=== PATIENT | female | born 1945 | race Caucasian/White ===

== ENCOUNTER 2023-01-20 21:16 | Emergency (ER) | payer OTHER ==
[2023-01-20] MEDS ORDERED: MORPHINE 4 MG/ML SYR ONE (22:04)
[2023-01-20] MEDS ORDERED: KETOROLAC 30 MG/ML INJ ONE (22:05)
[2023-01-20] MEDS ORDERED: NA CHLORIDE 0.9% 1,000 ML ONE (22:05)
[2023-01-20] MEDS ORDERED: ETOMIDATE 20 MG/10 ML VIAL IV ONE (22:05)
[2023-01-20] MEDS ORDERED: ONDANSETRON 4 MG/2 ML VIAL ONE (22:05)
--- NOTE | 2023-01-20 22:28 | RAD REPORT ---
EXAM DESCRIPTION: CT - CTFB CLINICAL HISTORY: nasal injury Trauma, nasal injury. COMPARISON: <Comparisons> TECHNIQUE: Axial 2 mm thick images of the face were obtained with sagittal and coronal reconstructio n images. All CT scans are performed using dose optimization technique as appropriate and may include automated exposure control or mA/KV adjustment according to patient size. FINDINGS: Mildly displaced right nasal bone fractures noted.The mandible is intact. The globes and orbital contents are grossly unremarkable.The paranasal sinuses and mastoids are clear . IMPRESSION: Mildly displaced nasal bone fracture.
[2023-01-21] MEDS ORDERED: ONDANSETRON 4 MG/2 ML VIAL ONE (00:30)
[2023-01-21] MEDS ORDERED: TETANUS & DIPHTHERIA TOX,ADULT 0.5 ML VIAL ONE (00:30)
[2023-01-21] MEDS ORDERED: IBUPROFEN 400 MG TAB ONE (01:52)
[2023-01-21] MEDS ORDERED: IBUPROFEN 200 MG TAB PO ONE (01:53)
[2023-01-21] MEDS ORDERED: ONDANSETRON 4 MG (ODT) TAB ONE ×2 (01:53→02:01)
[2023-01-21] MEDS ORDERED: HYDROCODONE/APAP 10/325 TAB ONE (01:54)
--- NOTE | 2023-01-21 02:42 | EDPHYS ---
Physician Documentation [facility] Name: Diane Rich Age: 77 yrs Sex: Female : 1945 Arrival Date: 01/20/2023 Time: 21:16 Bed 13 Private MD: ED Physician Kervin Ghosh HPI: 01/20 21:20 This 77 yrs old Female presents to ER via Unassigned with complaints of fall sp4 at home . 21:20 Very pleasant 77-year-old female with history of hypertension, presents with acute fall sp4 at home associated with forehead hematoma, nasal injury, nasal abrasion also left arm deformity at the left distal forearm there is also a left knee abrasion.. Historical: - Allergies: 21:23 No Known Allergies; kl - Home Meds: 21:23 Amitriptyline Oral 1 tab daily [Active]; Lopressor 25mg Oral 1 tab 2 times per day kl [Active]; omeprazole 20 mg Oral Tablet,disintegrating,delayed release daily [Active]; atorvastatin 20 mg oral tablet every evening [Active]; - PMHx: 21:23 Hypertensive disorder; high cholesterol; SVT; kl - PSHx: 21:23 left knee; kl - Immunization history:: Adult Immunizations Last tetanus immunization: < 5 years ago. - Social history:: Smoking status: Patient denies any tobacco usage or history of. - Family history:: not pertinent. ROS: 01/21 00:08 Constitutional: Negative for fever, chills, and weight loss, positive for head injury, sp4 forehead injury, nasal injury, left wrist injury, left knee injury with abrasion. ENT: Negative for pain, and discharge, positive for nasal injury, nasal abrasion, forehead contusion, nasal abrasion. MS/Extremity: Positive for left wrist deformity, left wrist injury and swelling, positive for left knee abrasion and contusion. All other systems are negative. Exam: 00:08 Constitutional: This is a well developed, well nourished patient who is awake, alert, sp4 and in no acute distress. Head/Face: Normocephalic, there is contusion to the forehead with hematoma, nasal abrasion with nasal denuded skin, no deformity Eyes: Pupils equal round and reactive to light, extra-ocular motions intact. Lids and lashes normal. Conjunctiva and sclera are not injected. Cornea within normal limits. Periorbital areas with no swelling, redness, or edema. ENT: Nares patent. No nasal discharge, no septal abnormalities noted. Tympanic membranes are normal and external auditory canals are clear. Oropharynx with no redness, swelling, or masses, exudates, or evidence of obstruction, uvula midline. Mucous membranes moist. Positive for nasal contusion and nasal abrasion to the bridge of the nose. Neck: Trachea midline, no thyromegaly or masses palpated, and no cervical lymphadenopathy. Supple, full range of motion without nuchal rigidity, or vertebral point tenderness. Chest/axilla: Normal chest wall appearance and motion. Nontender with no deformity. No lesions are appreciated. Cardiovascular: Regular rate and rhythm with a normal S1 and S2. No gallops, murmurs, or rubs. Normal PMI, no JVD. No pulse deficits. Respiratory: Lungs have equal breath sounds bilaterally, clear to auscultation and percussion. No rales, rhonchi or wheezes noted. No increased work of breathing, no retractions or nasal flaring. Abdomen/GI: Soft, non-tender, with normal bowel sounds. No distension or tympany. No guarding or rebound. No evidence of tenderness throughout. Back: No spinal tenderness. No costovertebral tenderness. Skin: Warm, dry with normal turgor. Normal color with no rashes, no lesions, and no evidence of cellulitis. MS/ Extremity: Pulses equal, no cyanosis. Neurovascular intact. There is a left wrist deformity at the left distal radius, there is associated swelling tenderness, preserved peripheral pulses, left hand movement of fingers is intact, neurovascular sensation intact as well. There is left knee mild abrasion. Neuro: Awake and alert, GCS 15, oriented to person, place, time, and situation. Cranial nerves II-XII grossly intact. Motor strength 5/5 in all extremities. Sensory grossly intact. Psych: Awake, alert, with orientation to person, place and time. Behavior, mood, and affect are within normal limits Vital Signs: 01/20 21:20 BP 125 / 63; Pulse 80; Resp 17; Temp 97.7; Pulse Ox 94% on R/A; Weight 65 kg; Height 5 kl ft. 1 in. ; Pain 10/10; 21:34 BP 115 / 61; Pulse 72; Resp 16 S; Pulse Ox 99% on R/A; ha1 22:10 BP 126 / 54; Pulse 95; Resp 18 S; Pulse Ox 98% on R/A; ha1 23:00 BP 126 / 57; Pulse 95; Resp 17 S; Pulse Ox 98% on R/A; ha1 01/21 00:00 BP 127 / 62; Pulse 91; Resp 18 S; Pulse Ox 100% ; ha1 01:00 BP 117 / 59; Pulse 91; Resp 15; Pulse Ox 100% on R/A; ha1 02:00 BP 121 / 62; Pulse 85; Resp 18 S; Pulse Ox 98% on R/A; ha1 03:00 BP 122 / 63; Pulse 82; Resp 16 S; Pulse Ox 98% on R/A; ha1 01/20 21:20 Body Mass Index 27.08 (65.00 kg, 154.94 cm) kl 01/20 21:20 Pain Scale: Adult kl Procedures: 00:08 Splinting: Splint applied to dorsal aspect of left forearm, left wrist and left hand sp4 using Orthoglass splint, sling, applied by myself. post reduction film - reveals improved alignment, Examined by me, post splint application: neurovascular intact, 2+ distal pulses palpable, brisk capillary refill noted, Patient tolerated well. Reduction: of the left wrist, using traction, manipulation, Manual manipulation until alignment., Immobilized with Sugar-tong fiberglass splint to left wrist and forearm.. Patient tolerated well. Post reduction film - reveals improved alignment. Reduction and splinting done with moderate sedation.. 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 MDM: 01/20 21:23 Patient medically screened. sp4 01/21 00:08 Data reviewed: vital signs, nurses notes, lab test result(s), radiologic studies, CT sp4 scan, plain films. Consideration of Admission/Observation Escalation of care including admission/observation considered. ED course: Left radius distal radius fracture. . 00:17 ED course: CT facial bones - FINDINGS: Mildly displaced right nasal bone fractures sp4 noted.The mandible is intact. The globes and orbital contents are grossly unremarkable.The paranasal sinuses and mastoids are clear. IMPRESSION: Mildly displaced nasal bone fracture. ED course: Nasal bone fracture at this time requires no management and patient will be prescribed Augmentin for the next 10 days also will advised to see ENT in case nose appears deformed after swelling subside.. ED course: EXAM: XR Left Forearm, 2 Views CLINICAL HISTORY: The patient is 77 years old and is Female; DEFORMITY TECHNIQUE: Frontal and lateral views of the left forearm. COMPARISON: No relevant prior studies available. FINDINGS: BONES/JOINTS: A minimally displaced ulnar styloid fracture is present. An impacted and angulated distal radial metaphyseal fracture is present. No dislocation. SOFT TISSUES: Unremarkable. IMPRESSION: Distal radius and ulnar fractures.. ED course: This fracture was reduced after moderate sedation. Will advise follow-up with orthopedist in [place] where patient resides.. ED course: FINDINGS: Right hand x-ray BONES/JOINTS: The bones are osteopenic. A minimally displaced ulnar styloid fracture is present. An impacted and displaced distal radial metaphyseal fracture is noted. No dislocation. SOFT TISSUES: Unremarkable. No radiopaque foreign body. IMPRESSION: Radial and ulnar fractures. . 02:38 ED course: COMPARISON: No relevant prior studies available. FINDINGS: BONES/JOINTS: sp4 Mild tricompartmental joint space narrowing is present, most prominent along the medial compartment. Spurring of the medial tibial plateau and femoral condyle is noted. There is no joint effusion. No acute fracture. No dislocation. SOFT TISSUES: Unremarkable. IMPRESSION: No acute findings in the left knee. ED course: EXAM: XR Left Tibia and Fibula, 2 Views CLINICAL HISTORY: The patient is 77 years old and is Female; injury and pain TECHNIQUE: Frontal and lateral views of the left tibia and fibula. COMPARISON: No relevant prior studies available. FINDINGS: BONES/JOINTS: Minimal degenerative change about the knee is present. No acute fracture. No dislocation. SOFT TISSUES: Unremarkable. No radiopaque foreign body. IMPRESSION: No acute findings in the left tibia and fibula or surrounding soft tissues. . 01/20 21:30 Order name: Hand Left 3 View XRAY sp4 01/20 21:30 Order name: Forearm Left XRAY sp4 01/20 21:30 Order name: CT Facial Bones W/O Con; Complete Time: 23:32 sp4 01/20 23:50 Order name: Wrist Left (2 View) XRAY sp4 01/21 01:36 Order name: Knee Left 3 View XRAY sp4 01/21 01:36 Order name: Tib Fib Left XRAY sp4 01/20 21:29 Order name: Saline Lock; Complete Time: 22:16 sp4 01/20 21:29 Order name: Moderate Sedation; Complete Time: 00:37 sp4 Administered Medications: 01/20 21:55 Drug: Ondansetron IVP 4 mg Route: IVP; Site: right antecubital; ha1 22:15 Follow up: Response: No adverse reaction ha1 21:55 Drug: NS 0.9% IV 1000 ml Route: IV; Rate: 125 ml/hr; Site: right antecubital; ha1 01/21 03:11 Follow up: Response: No adverse reaction; IV Status: Completed infusion; IV Intake: ha1 750ml 01/20 21:58 Drug: Ketorolac IVP 30 mg Route: IVP; Site: right antecubital; ha1 22:30 Follow up: Response: No adverse reaction; Pain is decreased ha1 22:00 Drug: morphine IVP or IV 4 mg Route: IVP; Infused Over: 4 mins; Site: right antecubital;ha1 22:30 Follow up: Response: No adverse reaction; Pain is decreased; RASS: Alert and Calm (0) ha1 23:47 Drug: Etomidate IVP 20 mg {Note: 10 mg given at 2347 10 mg given at 2359.} Route: IVP; ha1 Site: right antecubital; 01/21 00:15 Follow up: Response: No adverse reaction ha1 00:34 Drug: Tetanus-Diphtheria Toxoid IM Adult 0.5 ml {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 ha1 Exp: 06/14/2023. Lot #: [id number]. } Route: IM; Site: right deltoid; 01:00 Follow up: Response: No adverse reaction ha1 00:34 Drug: Ondansetron IVP 4 mg Route: IVP; Site: right antecubital; ha1 01:00 Follow up: Response: No adverse reaction; Nausea is decreased ha1 01:57 Drug: [place] PO 10 mg-325 mg 1 tabs Route: PO; ha1 02:45 Follow up: Response: No adverse reaction; Pain is decreased; RASS: Alert and Calm (0) ha1 01:57 Drug: Ondansetron PO 4 mg Route: PO; ha1 02:45 Follow up: Response: No adverse reaction ha1 01:57 Drug: Ibuprofen PO 600 mg Route: PO; ha1 02:45 Follow up: Response: No adverse reaction; Pain is decreased ha1 Disposition Summary: 01/21/23 02:42 Discharge Ordered Location: Home sp4 Problem: new sp4 Symptoms: have improved sp4 Condition: Stable sp4 Diagnosis - Left distal radius fracture, left radius metaphysis fracture with displacement, sp4 initial encounter, left ulnar styloid fracture, left knee contusion, left knee abrasion, closed nasal fracture - Facial contusion, forehead contusion, forehead hematoma, fall at home. sp4 Followup: sp4 - With: Private Physician - When: 2 - 3 days - Reason: Discharge Instructions: - Discharge Summary Sheet sp4 - Colles Fracture sp4 Forms: - [email or web address] sp4 Prescriptions: - ondansetron 4 mg Oral Tablet,disintegrating - take 1 tablet by ORAL route every 6 hours PRN nausea; 3 tablet; Refills: 0, sp4 Product Selection Permitted - Augmentin 875-125 mg Oral Tablet - take 1 tablet by ORAL route every 12 hours for 10 days; 20 tablet; Refills: 0, sp4 Product Selection Permitted - Ibuprofen 600 mg Oral Tablet - take 1 tablet by ORAL route every 6 hours As needed take with food; 30 tablet; sp4 Refills: 0, Product Selection Permitted - Tramadol 50 mg Oral Tablet - take 1 tablet by ORAL route every 8 hours as needed; 12 tablet; Refills: 0, sp4 Product Selection Permitted Signatures: Dispatcher [facility] Nirmala Jeffries RN Sally Plasencia RN RN ha1 Kervin Ghosh MD MD sp4 Corrections: (The following items were deleted from the chart) 00:07 01/20 21:20 This 77 yrs old Female presents to ER via Unassigned with sp4 complaints of AMS. sp4
--- NOTE | 2023-01-21 02:42 | ER ---
Nurse's Notes [facility] Name: Diane Rich Age: 77 yrs Sex: Female : 1945 Arrival Date: 01/20/2023 Time: 21:16 Bed 13 Private MD: Diagnosis: Left distal radius fracture, left radius metaphysis fracture with displacement, initial encounter, left ulnar styloid fracture, left knee contusion, left knee abrasion, closed nasal fracture;Facial contusion, forehead contusion, forehead hematoma, fall at home. Presentation: 01/20 21:20 Chief complaint: Patient states: tripped and fell onto concrete hit forehead reports kl left arm pain and left lower extremity pain denies LOC or blood thinners. Coronavirus screen: Vaccine status: Patient reports receiving the 2nd dose of the covid vaccine. Ebola Screen: Patient negative for fever greater than or equal to 101.5 degrees Fahrenheit, and additional compatible Ebola Virus Disease symptoms. Initial Sepsis Screen: Does the patient meet any 2 criteria? No. Patient's initial sepsis screen is negative. Does the patient have a suspected source of infection? No. Patient's initial sepsis screen is negative. Risk Assessment: Do you want to hurt yourself or someone else? Patient reports no desire to harm self or others. 21:20 Method Of Arrival: Wheelchair kl 21:20 Acuity: PONCHO 3 kl 21:20 Onset of symptoms was January 20, 2023. ha1 Triage Assessment: 21:25 General: Appears distressed, uncomfortable, Behavior is cooperative. Pain: Complains of kl pain in left wrist and palmar aspect of left forearm Pain currently is 10 out of 10 on a pain scale. 21:26 Derm: Bruising that is dark purple, on forehead. kl Historical: - Allergies: 21:23 No Known Allergies; kl - Home Meds: 21:23 Amitriptyline Oral 1 tab daily [Active]; Lopressor 25mg Oral 1 tab 2 times per day kl [Active]; omeprazole 20 mg Oral Tablet,disintegrating,delayed release daily [Active]; atorvastatin 20 mg oral tablet every evening [Active]; - PMHx: 21:23 Hypertensive disorder; high cholesterol; SVT; kl - PSHx: 21:23 left knee; kl - Immunization history:: Adult Immunizations Last tetanus immunization: < 5 years ago. - Social history:: Smoking status: Patient denies any tobacco usage or history of. - Family history:: not pertinent. Screenin:17 [facility] ED Fall Risk Assessment (Adult) History of falling in the last 3 months, ha1 including since admission Yes- single mechanical fall (1 pt) Confusion or Disorientation No (0 pts) Intoxicated or Sedated No (0 pts) Impaired Gait No (0 pts) Mobility Assist Device Used No (0 pt) Altered Elimination No (0 pt) Score/Fall Risk Level 0 - 2 = Low Risk Oriented to surroundings, Maintained a safe environment, Educated pt \T\ family on fall prevention, incl call for assistance when getting out of bed. 21:34 Abuse screen: Denies threats or abuse. Denies injuries from another. Nutritional ha1 screening: No deficits noted. Tuberculosis screening: No symptoms or risk factors identified. Assessment: 21:17 General: Appears uncomfortable, Behavior is cooperative. Pain: Complains of pain in ha1 left arm Pain does not radiate. Pain currently is 10 out of 10 on a pain scale. Neuro: Level of Consciousness is awake, alert, obeys commands, Oriented to person, place, time, situation. Cardiovascular: Patient's skin is warm and dry. Respiratory: Airway is patent Respiratory effort is even, unlabored, Respiratory pattern is regular, symmetrical. GI: No signs and/or symptoms were reported involving the gastrointestinal system. : No signs and/or symptoms were reported regarding the genitourinary system. Derm: Skin is pink, warm \T\ dry. Musculoskeletal: Circulation, motion, and sensation intact. Reports pain in left leg and left arm falling early today and believe she fractured her left wrist. 22:00 Reassessment: Patient and/or family updated on plan of care and expected duration. Pain ha1 level reassessed. Patient is alert, oriented x 3, equal unlabored respirations, skin warm/dry/pink. 23:00 Reassessment: Patient and/or family updated on plan of care and expected duration. Pain ha1 level reassessed. Patient is alert, oriented x 3, equal unlabored respirations, skin warm/dry/pink. pain 4/10. awaiting on procedure. Patient states feeling better. Patient states symptoms have improved. 01/21 00:00 Reassessment: Patient and/or family updated on plan of care and expected duration. Pain ha1 level reassessed. Patient is alert, oriented x 3, equal unlabored respirations, skin warm/dry/pink. intra-procedure of conscious sedation. 01:00 Reassessment: Patient and/or family updated on plan of care and expected duration. Pain ha1 level reassessed. Patient is alert, oriented x 3, equal unlabored respirations, skin warm/dry/pink. Patient states feeling better. Patient states symptoms have improved. 01:32 Reassessment: see floating sheet for vital signs. ha1 02:30 Reassessment: Patient and/or family updated on plan of care and expected duration. Pain ha1 level reassessed. Patient is alert, oriented x 3, equal unlabored respirations, skin warm/dry/pink. 03:11 Reassessment: Patient and/or family updated on plan of care and expected duration. Pain ha1 level reassessed. Patient is alert, oriented x 3, equal unlabored respirations, skin warm/dry/pink. Vital Signs: 01/20 21:20 BP 125 / 63; Pulse 80; Resp 17; Temp 97.7; Pulse Ox 94% on R/A; Weight 65 kg; Height 5 kl ft. 1 in. ; Pain 10/10; 21:34 BP 115 / 61; Pulse 72; Resp 16 S; Pulse Ox 99% on R/A; ha1 22:10 BP 126 / 54; Pulse 95; Resp 18 S; Pulse Ox 98% on R/A; ha1 23:00 BP 126 / 57; Pulse 95; Resp 17 S; Pulse Ox 98% on R/A; ha1 01/21 00:00 BP 127 / 62; Pulse 91; Resp 18 S; Pulse Ox 100% ; ha1 01:00 BP 117 / 59; Pulse 91; Resp 15; Pulse Ox 100% on R/A; ha1 02:00 BP 121 / 62; Pulse 85; Resp 18 S; Pulse Ox 98% on R/A; ha1 03:00 BP 122 / 63; Pulse 82; Resp 16 S; Pulse Ox 98% on R/A; ha1 01/20 21:20 Body Mass Index 27.08 (65.00 kg, 154.94 cm) 01/20 21:20 Pain Scale: Adult ED Course: 01/20 21:17 Patient arrived in ED. sb4 21:17 Patient has correct armband on for positive identification. Bed in low position. Call ha1 light in reach. Side rails up X 1. 21:19 Kervin Ghosh MD is Attending Physician. sp4 21:22 Triage completed. kl 21:31 Sally Chauhan, ROBBIE is Primary Nurse. ha1 21:35 Arm band placed on right wrist. ha1 22:19 CT Facial Bones W/O Con In Process Unspecified. EDMS 22:52 Hand Left 3 View XRAY In Process Unspecified. EDMS 22:52 Forearm Left XRAY In Process Unspecified. EDMS 01/21 00:10 Wrist Left (2 View) XRAY In Process Unspecified. EDMS 01:56 Knee Left 3 View XRAY In Process Unspecified. EDMS 01:56 Tib Fib Left XRAY In Process Unspecified. EDMS 03:11 conscious sedation. ha1 03:11 IV discontinued, intact, bleeding controlled, No redness/swelling at site. Pressure ha1 dressing applied. Administered Medications: 01/20 21:55 Drug: Ondansetron IVP 4 mg Route: IVP; Site: right antecubital; ha1 22:15 Follow up: Response: No adverse reaction ha1 21:55 Drug: NS 0.9% IV 1000 ml Route: IV; Rate: 125 ml/hr; Site: right antecubital; ha1 01/21 03:11 Follow up: Response: No adverse reaction; IV Status: Completed infusion; IV Intake: ha1 750ml 01/20 21:58 Drug: Ketorolac IVP 30 mg Route: IVP; Site: right antecubital; ha1 22:30 Follow up: Response: No adverse reaction; Pain is decreased ha1 22:00 Drug: morphine IVP or IV 4 mg Route: IVP; Infused Over: 4 mins; Site: right antecubital;ha1 22:30 Follow up: Response: No adverse reaction; Pain is decreased; RASS: Alert and Calm (0) ha1 23:47 Drug: Etomidate IVP 20 mg {Note: 10 mg given at 2347 10 mg given at 2359.} Route: IVP; ha1 Site: right antecubital; 01/21 00:15 Follow up: Response: No adverse reaction ha1 00:34 Drug: Tetanus-Diphtheria Toxoid IM Adult 0.5 ml {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 ha1 Exp: 06/14/2023. Lot #: [id number]. } Route: IM; Site: right deltoid; 01:00 Follow up: Response: No adverse reaction ha1 00:34 Drug: Ondansetron IVP 4 mg Route: IVP; Site: right antecubital; ha1 01:00 Follow up: Response: No adverse reaction; Nausea is decreased ha1 01:57 Drug: [place] PO 10 mg-325 mg 1 tabs Route: PO; ha1 02:45 Follow up: Response: No adverse reaction; Pain is decreased; RASS: Alert and Calm (0) ha1 01:57 Drug: Ondansetron PO 4 mg Route: PO; ha1 02:45 Follow up: Response: No adverse reaction ha1 01:57 Drug: Ibuprofen PO 600 mg Route: PO; ha1 02:45 Follow up: Response: No adverse reaction; Pain is decreased ha1 Medication: 03:11 Vaccine Information Statement (VIS) provided today. Questions and/or concerns ha1 addressed. VIS edition date: January 21, 2023. Intake: 03:11 IV: 750ml; Total: 750ml. ha1 Outcome: 02:42 Discharge ordered by sp4 03:11 Patient left the ED. ha1 03:11 Discharged to home via wheelchair, with family. ha1 03:11 Condition: stable 03:11 Discharge instructions given to patient, family, Instructed on discharge instructions, follow up and referral plans. medication usage, Demonstrated understanding of instructions, follow-up care, medications, Prescriptions given X 4. Signatures: Dispatcher [employer] Nirmala Jeffries RN RN kl Ayala, Heidy, RN RN ha1 Kasey Vitale, PALindaC PAKervin Adrian MD MD sp4
[2023-01-21 03:18] VITALS: TEMP 97.7
[2023-01-21 03:28] VITALS: O2SAT 98
[2023-01-21 03:30] VITALS: BP 122/63
--- NOTE | 2023-01-21 17:19 | RAD REPORT ---
EXAM DESCRIPTION: XR Left Tibia and Fibula, 2 Views CLINICAL HISTORY: The patient is 77 years old and is Female; injury and pain TECHNIQUE: Frontal and lateral views of the left tibia and fibula. COMPARISON: No relevant prior studies available. FINDINGS: BONES/JOINTS: Minimal degenerative change about the knee is present. No acute fracture . No dislocation. SOFT TISSUES: Unremarkable. No radiopaque foreign body. IMPRESSION: No acute findings in the left tibia and fibula or surrounding soft tissues. Electronically signed by: Laura Ventura MD 01/21/2023 2:28 AM CDT Due to temporary technical issues with the PACS/Fluency reporting system, reports are being signed by the in house radiologists without review as a courtesy to insure prompt reporting. The interpreting radiologist is fully responsible for the content of the report.
--- NOTE | 2023-01-21 17:23 | RAD REPORT ---
EXAM DESCRIPTION: XR Left Knee, 3 Views CLINICAL HISTORY: The patient is 77 years old and is Female; pain and injury TECHNIQUE: Three views of the left knee. COMPARISON: No relevant prior studies available. FINDINGS: BONES/JOINTS: Mild tricompartmental joint space narrowing is present, most prominent brian ng the medial compartment. Spurring of the medial tibial plateau and femoral condyle is noted. There is no joint effusion. No acute fracture. No dislocation. SOFT TISSUES: Unremarkable. IMPRESSION: No acute findings in the left knee. Electronically signed by: Laura Vnetura MD 01/21/2023 2:26 AM CDT Due to temporary technical issues with the PACS/Fluency reporting system, reports are being signed by the in house radiologists without review as a courtesy to insure prompt reporting. The interpreting radiologist is fully responsible for the content of the report.
--- NOTE | 2023-01-21 17:25 | RAD REPORT ---
EXAM DESCRIPTION: XR Left Wrist, 2 Views CLINICAL HISTORY: The patient is 77 years old and is Female; post reduction TECHNIQUE: Frontal and lateral views of the left wrist. COMPARISON: Radiographs performed the same day at 2225 hours FINDINGS: BONES/JOINTS: There has been interval successful reduction of the previously demonstrate d impacted and displaced distal radial fracture. The ulnar styloid fracture also demonstrates improve d alignment. SOFT TISSUES: Soft tissue swelling about the wrist is present. No radiopaque foreign body. IMPRESSION: Improved alignment of the distal radius and ulnar fractures. Electronically signed by: Laura Ventura MD 01/21/2023 12:41 AM CDT Due to temporary technical issues with the PACS/Fluency reporting system, reports are being signed by the in house radiologists without review as a courtesy to insure prompt reporting. The interpreting radiologist is fully responsible for the content of the report.
--- NOTE | 2023-01-21 17:36 | RAD REPORT ---
EXAM DESCRIPTION: XR Left Forearm, 2 Views CLINICAL HISTORY: The patient is 77 years old and is Female; DEFORMITY TECHNIQUE: Frontal and lateral views of the left forearm. COMPARISON: No relevant prior studies available. FINDINGS: BONES/JOINTS: A minimally displaced ulnar styloid fracture is present. An impacted and angulated distal radial metaphyseal fracture is present. No dislocation. SOFT TISSUES: Unremarkable. IMPRESSION: Distal radius and ulnar fractures. Electronically signed by: aLura Ventura MD 01/20/2023 11:12 PM CDT Due to temporary technical issues with the PACS/Fluency reporting system, reports are being signed by the in house radiologists without review as a courtesy to insure prompt reporting. The interpreting radiologist is fully responsible for the content of the report.
--- NOTE | 2023-01-21 17:37 | RAD REPORT ---
EXAM DESCRIPTION: XR Left Wrist, 2 Views CLINICAL HISTORY: The patient is 77 years old and is Female; post reduction TECHNIQUE: Frontal and lateral views of the left wrist. COMPARISON: Radiographs performed the same day at 2225 hours FINDINGS: BONES/JOINTS: There has been interval successful reduction of the previously demonstrate d impacted and displaced distal radial fracture. The ulnar styloid fracture also demonstrates improve d alignment. SOFT TISSUES: Soft tissue swelling about the wrist is present. No radiopaque foreign body. IMPRESSION: Improved alignment of the distal radius and ulnar fractures. Electronically signed by: Laura Ventura MD 01/21/2023 12:41 AM CDT Due to temporary technical issues with the PACS/Fluency reporting system, reports are being signed by the in house radiologists without review as a courtesy to insure prompt reporting. The interpreting radiologist is fully responsible for the content of the report.
== END 2023-01-21 03:11 | disposition home or self-care (01) ==
LOC: ER 21:16
PROC: 0PSJ35Z Reposition Left Radius with External Fixation Device, Percutaneous Approach (ICD-10-PCS; principal; 2023-01-21)
PROC: 0PSL35Z Reposition Left Ulna with External Fixation Device, Percutaneous Approach (ICD-10-PCS; 2023-01-21)
DX: S52.502A Unspecified fracture of the lower end of left radius, initial encounter for closed fracture (principal); S52.612A Displaced fracture of left ulna styloid process, initial encounter for closed fracture; S02.2XXA Fracture of nasal bones, initial encounter for closed fracture; S80.212A Abrasion, left knee, initial encounter; S00.83XA Contusion of other part of head, initial encounter; S80.02XA Contusion of left knee, initial encounter; Z23 Encounter for immunization; I10 Essential (primary) hypertension; E78.00 Pure hypercholesterolemia, unspecified
CPT/HCPCS: 96361; 70486; 76377; 73130; 73090; 73100; 73562; 73590; 90471; 90714; 96375; 96374; 99284; 25565; Q0162 ×2; J2405 ×2; J7030